=== PATIENT | female | born 1950 | race Caucasian/White ===

== ENCOUNTER → 2018-05-11 | Outpatient (CLI) | payer MEDICARE, BC | LOC: M.ULTRA 15:31 | DX: M79.89 Other specified soft tissue disorders (principal); R60.9 Edema, unspecified ==

== ENCOUNTER 2020-05-15 17:18 | Inpatient (IN) | payer MEDICARE, BC ==
[~2020-05-15] VITALS: Ht 149.9 cm; Wt 100.3 kg
[2020-05-15 17:31] VITALS: BP 107/73
[2020-05-15 17:52] LABS: URINE BILIRUBIN NEGATIVE (Negative); URINE BLOOD TRACE (Negative); URINE CLARITY CLEAR; URINE COLOR YELLOW; URINE GLUCOSE-RANDOM NEGATIVE (Negative); URINE KETONES NEGATIVE (Negative); URINE LEUKOCYTES-REFLEX 1+ (Negative); URINE NITRITE-REFLEX NEGATIVE (Negative); URINE PROTEIN NEGATIVE (Negative); URINE SPECIFIC GRAVITY 1.025 (1.005-1.030); URINE UROBILINOGEN 0.2 E.U./dl (0.2-1.0)
[2020-05-15 18:06] LABS: HYALINE CASTS >10 Many /LPF (None Seen); URINE RBC 0-2 Rare /HPF (0-2); URINE WBC-REFLEX 6-15 Few /HPF (0-5); WBC CLUMPS Few (None Seen)
[2020-05-15 18:06] LABS: ABSOLUTE EOSINOPHILS 0.1 thou/uL (0.0-0.7); ABSOLUTE LYMPHOCYTES 1.2 thou/uL (0.8-5.3); ABSOLUTE MONOCYTES 0.4 thou/uL (0.0-1.2); ABSOLUTE NEUTROPHILS 4.2 thou/uL (1.6-8.1); BASOPHILS 0.6 %; EOSINOPHILS 1.6 %; HEMATOCRIT 36.1 % (37.0-47.0); HEMOGLOBIN 11.8 gm/dL (12.0-15.0); LYMPHOCYTES 20.8 %; MCH 29.3 pg (26.0-34.0); MCHC 32.5 g/dL (28.0-37.0); MONOCYTES 6.7 %; NUCLEATED RBCS 0 /100WBC; PLATELET COUNT* 322 thou/uL (150-400); POLYS 70.3 %; RBC 4.02 mil/uL (4.20-5.00); RDW-CV 15.6 % (10.5-14.5)
[2020-05-15 18:07] LABS: BACTERIA-REFLEX 1-9 Few /HPF (None Seen); CRYSTALS None Seen /LPF (None Seen); MUCUS None Seen strn/LPF (None Seen); SQUAMOUS NONE SEEN /LPF (0-3)
[2020-05-15 18:12] LABS: CALCIUM 8.6 mg/dL (8.5-10.1); CREATININE 1.4 mg/dL (0.6-1.3); POTASSIUM 3.8 mmol/L (3.5-5.1)
[2020-05-15 18:17] LABS: ALBUMIN 2.8 g/dL (3.4-5.0); MAGNESIUM 1.6 mg/dL (1.8-2.4); TOTAL BILIRUBIN 0.5 mg/dL (<0.1-1.0); TOTAL PROTEIN 6.6 g/dL (6.4-8.2)
[2020-05-15 18:24] LABS: BE 2.1 mmol/L (-2 to +3); PCO2 40.3 mmHg (35.0-45.0); pH 7.435 (7.340-7.450)
[2020-05-15] MEDS ORDERED: OXYBUTYNIN 5 MG5 M2 PO (19:32)
[2020-05-15] MEDS ORDERED: FENOFIBRATE160 MG PO (19:32)
[2020-05-15] MEDS ORDERED: VENLAFAXINE HCL75 M2 PO (19:33)
[2020-05-15] MEDS ORDERED: SYNTHROID137 MC1 PO (19:33)
[2020-05-15] MEDS ORDERED: PHENTERMINE HCL30 MG PO (19:33)
[2020-05-15] MEDS ORDERED: SEROQUEL 25 MG25 MG PO (19:34)
[2020-05-15] MEDS ORDERED: ACTOS 45 MG45 M2 PO (19:34)
[2020-05-15] MEDS ORDERED: ZESTRIL10 MG PO (19:34)
[2020-05-15] MEDS ORDERED: ALPRAZOLAM XR3 MG PO (19:35)
[2020-05-15 20:27] VITALS: BP 98/61
[2020-05-15 20:45] VITALS: BP 140/60
[2020-05-15 23:55] VITALS: BP 137/45
[2020-05-16 04:28] VITALS: BP 147/54
[2020-05-16 08:00] VITALS: BP 154/67
--- NOTE | 2020-05-16 09:05 | EKG ---
[place] [address] ELECTROCARDIOGRAM REPORT Name: ROBERTORHONDA M Room: [address] ADM IN M.R.#: [id number] Admission: 05/15/20 Attend Phys: Francicso J [address], Discharge: Date of : 52 Date of Service: 05/15/20 1759 Report #: [id number] THIS REPORT FOR: //name// [facility] ED Test Date: 2020-05-15 Test Time: 17:59:37 Pat Name: RHONDA MEJIA Department: Room: [facility] Gender: F [employer]air: : 1950 Requested By: Radha Bustos Order Number: [id number] MD: Alex Rosen Measurements Intervals [place] Rate: 106 P: 33 AR: 187 QRS: 1 QRSD: 88 T: 31 QT: 318 QTc: 423 Interpretive Statements Sinus tachycardia Abnormal R-wave progression, early transition Compared to ECG 03/05/2009 08:32:19 Sinus rhythm no longer present Left ventricular hypertrophy no longer present Electronically Signed On 05-16-2020 9:05:33 [employer] OPERATOR by Alex Rosen [email or web address] <ELECTRONICALLY SIGNED> By: Alex Rosen MD, FACC 05/16/20 0905 175 1759 Alex Rosen MD, FAC /EPI
[2020-05-16 10:33] LABS: ANION GAP 12 mmol/L (7-16); BUN 30 mg/dL (7-18); CALCIUM 8.9 mg/dL (8.5-10.1); CHLORIDE 107 mmol/L (98-107); CHOLESTEROL 136 mg/dL (<200); CO2 25 mmol/L (21-32); CREATININE 1.3 mg/dL (0.6-1.3); GLUCOSE 65 mg/dL (70-99); HDL CHOLESTEROL 35 mg/dL (>40); LDL CHOLESTEROL 77 mg/dL (<100); MAGNESIUM 1.7 mg/dL (1.8-2.4); POTASSIUM 3.5 mmol/L (3.5-5.1); SODIUM 144 mmol/L (136-145); TC:HDL 3.9 Ratio (Not establshd); TRIGLYCERIDE 123 mg/dL (<150); VLDL 25 mg/dL (<40)
[2020-05-16 10:34] LABS: SERUM ASSESSMENT Clear
[2020-05-16 12:49] VITALS: BP 151/92
[2020-05-16 19:44] VITALS: BP 98/46
[2020-05-17] VITALS: BP 87/47
[2020-05-17 04:00] VITALS: BP 114/35
[2020-05-17 04:50] LABS: HEMATOCRIT 29.9 % (37.0-47.0); MCH 29.5 pg (26.0-34.0); MCHC 32.6 g/dL (28.0-37.0); MCV 90.4 fL (80.0-100.0); MPV 9.5 fl. (7.2-11.1); RBC 3.3 mil/uL (4.20-5.00); RDW-CV 15.7 % (10.5-14.5); WBC 5.8 thou/uL (4.0-11.0)
[2020-05-17 05:07] LABS: HEMOGLOBIN 9.7 gm/dL (12.0-15.0)
[2020-05-17 05:34] LABS: ALBUMIN 2.4 g/dL (3.4-5.0); CALCIUM 8.4 mg/dL (8.5-10.1); CREATININE 1.4 mg/dL (0.6-1.3); MAGNESIUM 1.8 mg/dL (1.8-2.4); POTASSIUM 4.7 mmol/L (3.5-5.1); TOTAL BILIRUBIN 0.5 mg/dL (<0.1-1.0); TOTAL PROTEIN 5.3 g/dL (6.4-8.2)
[2020-05-17 05:39] LABS: GLYCOHEMOGLOBIN (HGB A1C) 6.9 % (4.8-5.6)
[2020-05-17 08:09] VITALS: BP 115/55
[2020-05-17 11:58] VITALS: BP 109/48
[2020-05-17 15:50] VITALS: BP 131/95
[2020-05-17 20:10] VITALS: BP 123/50
[2020-05-18 01:30] VITALS: BP 102/44
[2020-05-18 04:59] VITALS: BP 102/48
[2020-05-18] MEDS ORDERED: TRULICITY0.75 MG/0. SUBQ (07:57)
[2020-05-18] MEDS ORDERED: AMOX TR-K CLV1 EAC3 PO (07:57)
[2020-05-18 08:03] VITALS: BP 137/56
[2020-05-18 12:00] VITALS: BP 143/74; BP 149/59
[2020-05-18 16:00] VITALS: BP 124/61; BP 127/66
[2020-05-19 06:18] LABS: HEPATITIS B SURFACE AG Negative (Negative)
== END 2020-05-18 20:19 | DRG 441 ==
LOC: M.ERS 17:18 → M.TBA-ER 19:21 → M.2W 19:21
PROVIDERS: Personal Emergency Response Attendant; ADMIT Internal Medicine; ATTEND Internal Medicine
DX: K71.2 Toxic liver disease with acute hepatitis (principal); N17.0 Acute kidney failure with tubular necrosis; G92 Toxic encephalopathy; E44.0 Moderate protein-calorie malnutrition; Z68.41 Body mass index [BMI] 40.0-44.9, adult; N30.91 Cystitis, unspecified with hematuria; B95.2 Enterococcus as the cause of diseases classified elsewhere; E11.9 Type 2 diabetes mellitus without complications; E86.9 Volume depletion, unspecified; D64.9 Anemia, unspecified; R77.8 Other specified abnormalities of plasma proteins; T50.995A Adverse effect of other drugs, medicaments and biological substances, initial encounter; Z20.828 Contact with and (suspected) exposure to other viral communicable diseases; Y92.89 Other specified places as the place of occurrence of the external cause; Z79.84 Long term (current) use of oral hypoglycemic drugs; Z79.899 Other long term (current) drug therapy

== ENCOUNTER 2020-05-18 16:24 | Inpatient (IN) | payer MEDICARE, BC ==
[~2020-05-18] VITALS: Ht 147.3 cm; Wt 89.7 kg
[~2020-05-18 16:24] MED LIST: ACTOS 45 MG45 M2 PO; ALPRAZOLAM XR3 MG PO; AMOX TR-K CLV1 EAC3 PO; FENOFIBRATE160 MG PO; OXYBUTYNIN 5 MG5 M2 PO; PHENTERMINE HCL30 MG PO; SEROQUEL 25 MG25 MG PO; SYNTHROID137 MC1 PO; TRULICITY0.75 MG/0. SUBQ; VENLAFAXINE HCL75 M2 PO; ZESTRIL10 MG PO
[2020-05-18 20:00] VITALS: BP 117/57
[2020-05-19 04:21] LABS: HEMATOCRIT 31.8 % (37.0-47.0); HEMOGLOBIN 10.3 gm/dL (12.0-15.0); MCHC 32.2 g/dL (28.0-37.0); MCV 89.9 fL (80.0-100.0); MPV 9.6 fl. (7.2-11.1); RBC 3.53 mil/uL (4.20-5.00); WBC 4.7 thou/uL (4.0-11.0)
[2020-05-19 04:59] LABS: CALCIUM 8.8 mg/dL (8.5-10.1); POTASSIUM 4.1 mmol/L (3.5-5.1)
[2020-05-19 07:30] VITALS: BP 147/72
[2020-05-19 19:00] VITALS: BP 125/48
[2020-05-20 03:46] VITALS: BP 129/49
[2020-05-20 04:22] LABS: CALCIUM 8.8 mg/dL (8.5-10.1); CREATININE 1.2 mg/dL (0.6-1.3); POTASSIUM 3.6 mmol/L (3.5-5.1)
[2020-05-20 04:45] LABS: HEMOGLOBIN 10.4 gm/dL (12.0-15.0); MCH 29.1 pg (26.0-34.0); MCHC 32.5 g/dL (28.0-37.0); MCV 89.5 fL (80.0-100.0); MPV 9.8 fl. (7.2-11.1); RBC 3.57 mil/uL (4.20-5.00); RDW-CV 15.7 % (10.5-14.5); WBC 5.7 thou/uL (4.0-11.0)
[2020-05-20 08:00] VITALS: BP 146/80
[2020-05-20 19:00] VITALS: BP 120/47
[2020-05-21 04:59] LABS: ABSOLUTE BASOPHILS 0.1 thou/uL (0.0-0.2); ABSOLUTE EOSINOPHILS 0.1 thou/uL (0.0-0.7); ABSOLUTE LYMPHOCYTES 2.1 thou/uL (0.8-5.3); ABSOLUTE MONOCYTES 0.5 thou/uL (0.0-1.2); ABSOLUTE NEUTROPHILS 2.2 thou/uL (1.6-8.1); BASOPHILS 1.4 %; EOSINOPHILS 2.5 %; HEMOGLOBIN 8.9 gm/dL (12.0-15.0); LYMPHOCYTES 42.2 %; MCH 29.5 pg (26.0-34.0); MCV 89.3 fL (80.0-100.0); MONOCYTES 9.6 %; MPV 9.3 fl. (7.2-11.1); NUCLEATED RBCS 0 /100WBC; PLATELET COUNT* 210 thou/uL (150-400); POLYS 44.3 %; RBC 3.02 mil/uL (4.20-5.00); RDW-CV 15.5 % (10.5-14.5); WBC 4.9 thou/uL (4.0-11.0)
[2020-05-21 05:07] LABS: CALCIUM 8.6 mg/dL (8.5-10.1); CREATININE 1.1 mg/dL (0.6-1.3); POTASSIUM 3.8 mmol/L (3.5-5.1)
[2020-05-21 08:00] VITALS: BP 140/56
[2020-05-21] MEDS ORDERED: OLANZAPINE ODT5 MG PO (10:32)
[2020-05-21 21:30] VITALS: BP 107/35
[2020-05-22 07:58] VITALS: BP 139/45
[2020-05-22 19:00] VITALS: BP 113/49; BP 128/57
[2020-05-23 14:13] LABS: ABSOLUTE BASOPHILS 0.1 thou/uL (0.0-0.2); ABSOLUTE EOSINOPHILS 0.1 thou/uL (0.0-0.7); ABSOLUTE LYMPHOCYTES 1.1 thou/uL (0.8-5.3); ABSOLUTE MONOCYTES 0.5 thou/uL (0.0-1.2); ABSOLUTE NEUTROPHILS 3.8 thou/uL (1.6-8.1); BASOPHILS 1.2 %; HEMATOCRIT 37.2 % (37.0-47.0); LYMPHOCYTES 20.2 %; MCHC 32.3 g/dL (28.0-37.0); MCV 89.9 fL (80.0-100.0); MONOCYTES 8.4 %; MPV 10.3 fl. (7.2-11.1); NUCLEATED RBCS 0 /100WBC; PLATELET COUNT* 242 thou/uL (150-400); POLYS 69.2 %; RBC 4.14 mil/uL (4.20-5.00); RDW-CV 16.1 % (10.5-14.5); WBC 5.5 thou/uL (4.0-11.0)
[2020-05-23 14:17] LABS: ALBUMIN 2.9 g/dL (3.4-5.0); CALCIUM 9.3 mg/dL (8.5-10.1); POTASSIUM 3.9 mmol/L (3.5-5.1); TOTAL BILIRUBIN 0.6 mg/dL (<0.1-1.0); TOTAL PROTEIN 6.8 g/dL (6.4-8.2)
[2020-05-23 14:21] LABS: % SATURATION 29 % (20-39); IRON 106 ug/dL (50-175)
[2020-05-23 19:35] VITALS: BP 156/66
[2020-05-24 07:40] VITALS: BP 136/83
[2020-05-24 19:20] VITALS: BP 103/52
[2020-05-25 07:40] VITALS: BP 156/70
[2020-05-25 19:00] VITALS: BP 83/37
[2020-05-26 04:28] LABS: ABSOLUTE BASOPHILS 0.1 thou/uL (0.0-0.2); ABSOLUTE EOSINOPHILS 0.3 thou/uL (0.0-0.7); ABSOLUTE LYMPHOCYTES 2.5 thou/uL (0.8-5.3); ABSOLUTE MONOCYTES 0.6 thou/uL (0.0-1.2); ABSOLUTE NEUTROPHILS 3.1 thou/uL (1.6-8.1); BASOPHILS 1.4 %; HEMATOCRIT 29.2 % (37.0-47.0); LYMPHOCYTES 37.9 %; MCH 29.6 pg (26.0-34.0); MCHC 32.7 g/dL (28.0-37.0); MCV 90.5 fL (80.0-100.0); MONOCYTES 9.1 %; MPV 10.3 fl. (7.2-11.1); NUCLEATED RBCS 0 /100WBC; PLATELET COUNT* 173 thou/uL (150-400); POLYS 47.6 %; RBC 3.22 mil/uL (4.20-5.00); RDW-CV 16.2 % (10.5-14.5); WBC 6.6 thou/uL (4.0-11.0)
[2020-05-26 04:37] LABS: HEMOGLOBIN 9.5 gm/dL (12.0-15.0)
[2020-05-26 04:54] LABS: CALCIUM 8.7 mg/dL (8.5-10.1)
[2020-05-26 04:59] LABS: CREATININE 2.5 mg/dL (0.6-1.3)
[2020-05-26 05:43] VITALS: BP 78/23
[2020-05-26 07:45] VITALS: BP 99/69
[2020-05-26 21:00] VITALS: BP 144/67
[2020-05-27 04:14] LABS: HEMATOCRIT 27.3 % (37.0-47.0); MCH 29.6 pg (26.0-34.0); MCHC 33.1 g/dL (28.0-37.0); MCV 89.4 fL (80.0-100.0); MPV 10.1 fl. (7.2-11.1); RBC 3.05 mil/uL (4.20-5.00); RDW-CV 16.5 % (10.5-14.5); WBC 5.2 thou/uL (4.0-11.0)
[2020-05-27 04:19] LABS: CALCIUM 8.5 mg/dL (8.5-10.1); POTASSIUM 3.7 mmol/L (3.5-5.1)
[2020-05-27 04:21] LABS: CREATININE 1.5 mg/dL (0.6-1.3)
[2020-05-27 07:38] VITALS: BP 145/52
[2020-05-27 21:00] VITALS: BP 142/62
[2020-05-28 08:00] VITALS: BP 132/74
[2020-05-28 19:59] VITALS: BP 130/63
[2020-05-29 07:30] VITALS: BP 144/60
[2020-05-29 19:45] VITALS: BP 95/40
[2020-05-30 05:19] LABS: URINE BILIRUBIN NEGATIVE (Negative); URINE BLOOD 1+ (Negative); URINE CLARITY CLEAR; URINE COLOR YELLOW; URINE GLUCOSE-RANDOM NEGATIVE (Negative); URINE KETONES NEGATIVE (Negative); URINE NITRITE-REFLEX NEGATIVE (Negative); URINE PROTEIN NEGATIVE (Negative); URINE UROBILINOGEN 0.2 E.U./dl (0.2-1.0)
[2020-05-30 05:38] LABS: URINE LEUKOCYTES-REFLEX 2+ (Negative)
[2020-05-30 06:05] LABS: CASTS None Seen /LPF (None Seen)
[2020-05-30 06:06] LABS: SQUAMOUS 4-10 Moderate /LPF (0-3)
[2020-05-30 06:07] LABS: URINE WBC-REFLEX >25 Many /HPF (0-5)
[2020-05-30 06:08] LABS: CRYSTALS None Seen /LPF (None Seen); URINE RBC 3-10 Few /HPF (0-2); YEAST-REFLEX Present (None Seen)
[2020-05-30 06:09] LABS: RENAL EPITHELIAL CELLS 0-3 Few /LPF (None Seen)
[2020-05-30 07:15] VITALS: BP 104/54
[2020-05-30 15:37] LABS: ABSOLUTE BASOPHILS 0.1 thou/uL (0.0-0.2); ABSOLUTE EOSINOPHILS 0.2 thou/uL (0.0-0.7); ABSOLUTE LYMPHOCYTES 1.7 thou/uL (0.8-5.3); ABSOLUTE MONOCYTES 0.6 thou/uL (0.0-1.2); ABSOLUTE NEUTROPHILS 3.6 thou/uL (1.6-8.1); BASOPHILS 1.6 %; EOSINOPHILS 3.2 %; HEMATOCRIT 30.4 % (37.0-47.0); LYMPHOCYTES 27.7 %; MCH 29.6 pg (26.0-34.0); MCV 89.7 fL (80.0-100.0); MONOCYTES 9.1 %; MPV 10.1 fl. (7.2-11.1); NUCLEATED RBCS 0 /100WBC; PLATELET COUNT* 172 thou/uL (150-400); POLYS 58.4 %; RBC 3.39 mil/uL (4.20-5.00); RDW-CV 17.2 % (10.5-14.5); WBC 6.2 thou/uL (4.0-11.0)
[2020-05-30 15:50] LABS: ALBUMIN 2.5 g/dL (3.4-5.0); CALCIUM 9.2 mg/dL (8.5-10.1); CREATININE 1.5 mg/dL (0.6-1.3); TOTAL BILIRUBIN 0.5 mg/dL (<0.1-1.0); TOTAL PROTEIN 5.7 g/dL (6.4-8.2)
[2020-05-30 19:00] VITALS: BP 127/46
[2020-05-30 21:13] LABS: PO2 111.9 mmHg (75.0-100.0)
[2020-05-30 21:22] LABS: PCO2 51.3 mmHg (35.0-45.0)
[2020-05-31] VITALS: BP 131/49
[2020-05-31 04:59] LABS: HEMATOCRIT 31.8 % (37.0-47.0); HEMOGLOBIN 10.3 gm/dL (12.0-15.0); MCH 29.4 pg (26.0-34.0); MCHC 32.4 g/dL (28.0-37.0); MCV 90.8 fL (80.0-100.0); MPV 10.5 fl. (7.2-11.1); RBC 3.51 mil/uL (4.20-5.00); RDW-CV 17.1 % (10.5-14.5)
[2020-05-31 05:34] LABS: ALBUMIN 2.5 g/dL (3.4-5.0); CALCIUM 8.5 mg/dL (8.5-10.1); CREATININE 1.2 mg/dL (0.6-1.3); POTASSIUM 4.2 mmol/L (3.5-5.1); TOTAL BILIRUBIN 0.3 mg/dL (<0.1-1.0)
[2020-05-31 08:13] VITALS: BP 155/79
[2020-05-31 19:00] VITALS: BP 101/39
[2020-06-01 07:33] VITALS: BP 150/75
[2020-06-01 07:59] VITALS: BP 150/75
--- NOTE | 2020-06-01 13:44 | EKG ---
[place] [address] ELECTROCARDIOGRAM REPORT Name: RHONDA MEJIA Room: [address] ADM IN M.R.#: [id number] Admission: 05/18/20 Attend Phys: Kurt Hopson MD Discharge: Date of : 52 Date of Service: 05/30/20 1718 Report #: [id number] THIS REPORT FOR: //name// [facility] Test Date: 2020-05-30 Test Time: 17:18:40 Pat Name: RHONDA MEJIA Department: Room: [address] Gender: F Mentally Retarded Teacher: UNKNOWN : 1950 Requested By: Kurt Hopson Order Number: [id number] Reading MD: Alex Rosen Measurements Intervals [place] Rate: 93 P: 18 UT: 166 QRS: -17 QRSD: 87 T: 2 QT: 366 QTc: 456 Interpretive Statements Sinus rhythm Abnormal R-wave progression, early transition LVH by voltage Inferior infarct, old Compared to ECG 05/15/2020 17:59:37 Left ventricular hypertrophy now present Sinus tachycardia no longer present Electronically Signed On 06-01-2020 13:44:28 [employer] WELL TREATMENT OPERATOR by Alex Rosen [email or web address] <ELECTRONICALLY SIGNED> By: Alex Rosen MD, FACC 06/01/20 1344 1718 1718 Alex Rosen MD, FAC /EPI
== END 2020-06-01 14:56 | DRG 91 ==
LOC: M.REH 16:24
PROVIDERS: Internal Medicine; Nurse Practitioner Family; ADMIT Physical Medicine & Rehabilitation; ATTEND Physical Medicine & Rehabilitation
DX: G92 Toxic encephalopathy (principal); N17.0 Acute kidney failure with tubular necrosis; Z68.41 Body mass index [BMI] 40.0-44.9, adult; E44.0 Moderate protein-calorie malnutrition; F32.9 Major depressive disorder, single episode, unspecified; F41.1 Generalized anxiety disorder; N30.91 Cystitis, unspecified with hematuria; K75.9 Inflammatory liver disease, unspecified; B95.2 Enterococcus as the cause of diseases classified elsewhere; E11.40 Type 2 diabetes mellitus with diabetic neuropathy, unspecified; E66.01 Morbid (severe) obesity due to excess calories; E89.0 Postprocedural hypothyroidism; D64.9 Anemia, unspecified; Z79.899 Other long term (current) drug therapy